=== PATIENT | male | born 1985 | race Caucasian/White ===

== ENCOUNTER 2020-06-26 01:22 | Emergency (ER) | payer SELFPAY ==
[2020-06-26] MEDS ORDERED: Lidocaine 1% 20 ML MDV INFILT ONE (01:23)
--- NOTE | 2020-06-26 02:17 | EDM.PDOC ---
ED HPI GENERAL MEDICAL PROBLEM - General Stated Complaint: FINGER LACERATION Time Seen by Provider: 06/26/20 01:50 Source of Information: Reports: Patient History Limitations: Reports: No Limitations - History of Present Illness INITIAL COMMENTS - FREE TEXT/NARRATIVE: pt has lac to right 5th finger, after accidental injury, no other medical concerns, last tetanus was 4 years ago. ED ROS GENERAL - Review of Systems Review Of Systems: See Below Constitutional: Reports: No Symptoms HEENT: Reports: No Symptoms Respiratory: Reports: No Symptoms Cardiovascular: Reports: No Symptoms ED EXAM, GENERAL - Physical Exam Exam: See Below Exam Limited By: No Limitations General Appearance: No Apparent Distress Respiratory/Chest: No Respiratory Distress, Lungs Clear Cardiovascular: Normal Peripheral Pulses, Regular Rate, Rhythm Extremities: Other (1.5 clean lac at lateral side of rigth fifth finger. ) Neurological: Alert, Oriented, CN II-XII Intact ED GENERAL MEDICAL PROCEDURES - Laceration/Wound Repair Right Lateral Digit - 5th (Baby) Appearance: Superficial Anesthetic Type: Local Local Anesthesia - Lidocaine (Xylocaine): 1% Plain Local Anesthetic Volume: 2cc Exploration/Debridement/Repair: Wound Explored, No Foreign Material Found Closed with: Sutures Suture Size: 3-0 Suture Type: Nylon Suture Size: 3-0 # of Sutures: 3 Tetanus Status Addressed: Yes Complications: No Course - Vital Signs Text/Narrative:: usual wound care was explained, pt to follow with PCP in 1 week for suture removal. Departure - Departure Time of Disposition: 02:16 Disposition: Home, Self-Care 01 Clinical Impression: Finger laceration - Discharge Information Referrals: PCP,None [Primary Care Provider] -
== END 2020-06-26 02:30 | disposition home or self-care (01) ==
LOC: FB.ED 01:22
DX: S61.216A Laceration without foreign body of right little finger without damage to nail, initial encounter (principal); W25.XXXA Contact with sharp glass, initial encounter
CPT/HCPCS: 12001; 99282; J2001

== ENCOUNTER 2021-02-10 00:22 | Emergency (ER) | payer SELFPAY ==
--- NOTE | 2021-02-10 00:51 | EDM.PDOC ---
ED HPI GENERAL MEDICAL PROBLEM - General Chief Complaint: Laceration Stated Complaint: LT ARM LACERATION Time Seen by Provider: 02/10/21 00:51 - History of Present Illness INITIAL COMMENTS - FREE TEXT/NARRATIVE: Left arm laceration Left Upper Arm Pain Score (Numeric/FACES): 4 - Related Data Allergies Allergy/AdvReac Type Severity Reaction Status Date / Time codeine Allergy Itching Verified 02/10/21 00:45 Home Meds: Home Meds Amoxicillin/Clavulanate K [Augmentin 875-125 MG] 1 tab PO BID #14 tablet 02/10/21 [Rx] Meloxicam 15 mg PO DAILY #7 tablet 02/10/21 [Rx] Sulfamethoxazole/Trimethoprim [Sulfamethoxazole-Tmp Ds Tablet] 1 each PO BID #14 tablet 02/10/21 [Rx] Past Medical History Dermatologic History: Reports: Other (See Below) Other Dermatologic History: Laceration right hand. - Past Surgical History GI Surgical History: Reports: Hernia Repair/Other, Other (See Below) Other GI Surgeries/Procedures: States right hernia repair with mesh. Musculoskeletal Surgical History: Reports: Other (See Below) Other Musculoskeletal Surgeries/Procedures:: States left shoulder surgery, with pins. Social & Family History - Tobacco Use Tobacco Use Status *Q: Current Every Day Tobacco User Years of Tobacco use: 20 Packs/Tins Daily: 0.5 - Caffeine Use Caffeine Use: Reports: Coffee, Energy Drinks, Soda, Tea - Recreational Drug Use Recreational Drug Use: No ED ROS GENERAL - Review of Systems Review Of Systems: Comprehensive ROS is negative, except as noted in HPI. ED EXAM, SKIN/RASH Exam: See Below Text/Narrative:: 7 CM lac to the kleft arm ED SKIN PROCEDURES - Laceration/Wound Repair Left Proximal Arm Appearance: Subcutaneous, Mildly Contaminated Distal NVT: Neuro & Vascular Intact Anesthetic Type: Local Local Anesthesia - Lidocaine (Xylocaine): 2% with EPI Skin Prep: Chlorhexidine (Hibiciens) Exploration/Debridement/Repair: In a Bloodless Field Closed with: Sutures Lac/Wound length In cm: 7 Suture Size: 3-0 Suture Type: Silk Course - Vital Signs Last Recorded V/S: Last Vital Signs Temp 97.3 F 02/10/21 00:25 Pulse 84 02/10/21 00:25 Resp 18 02/10/21 00:25 BP 127/81 02/10/21 00:25 Pulse Ox 95 02/10/21 00:25 Departure - Departure Time of Disposition: 00:51 Disposition: Home, Self-Care 01 Clinical Impression: Finger laceration - Discharge Information Instructions: Laceration Care, Adult Referrals: PCP,None [Primary Care Provider] - Forms: ED Department Discharge Additional Instructions: See primary care physician in one week to remove sutures. Keep area clean, dry, and intact. Follow-up as needed. Sepsis Event Note (ED) - Evaluation Sepsis Screening Result: No Definite Risk - Problem List & Annotations (1) Laceration SNOMED Code(s): 896913268 Code(s): SVP4673 - Status: Acute - Problem List Review Problem List Initiated/Reviewed/Updated: Yes - Assessment/Plan Plan: Tdap addressed. Return in 7 days for ROS
--- NOTE | 2021-02-24 06:48 | ER ---
DATE SEEN: 02/10/2021 ADDENDUM: CLINICAL IMPRESSION: Final Impression: Left arm laceration. /[id number] [place]
== END 2021-02-10 01:00 | disposition home or self-care (01) ==
LOC: FB.ED 00:22
DX: S41.112A Laceration without foreign body of left upper arm, initial encounter (principal); S61.219A Laceration without foreign body of unspecified finger without damage to nail, initial encounter; Z72.0 Tobacco use; Z88.5 Allergy status to narcotic agent; W26.8XXA Contact with other sharp object(s), not elsewhere classified, initial encounter
CPT/HCPCS: 12002; 99281; 99282-25

== ENCOUNTER 2021-02-10 21:44 | Emergency (ER) | payer SELFPAY ==
[2021-02-10] MEDS ORDERED: Ketorolac 30 MG/ML SDV IVPUSH ONE (22:18)
[2021-02-10] MEDS ORDERED: methylPREDNISolone Sodium Succinate 125 MG/2 ML SDV IVPUSH ONE (22:18)
[2021-02-10] MEDS ORDERED: cefTRIAXone 2 GM Vial IVPUSH ONE (22:18)
[2021-02-10] MEDS ORDERED: VANCOmycin 1 GM/200 ML 1 GM in Premix Bag 1 BAG IV ONE (22:18)
--- NOTE | 2021-02-10 22:39 | EDM.PDOC ---
ED HPI GENERAL MEDICAL PROBLEM - General Chief Complaint: General Stated Complaint: PAIN FROM LACERATION Time Seen by Provider: 02/10/21 22:00 Source of Information: Reports: Patient, Family History Limitations: Reports: No Limitations - History of Present Illness INITIAL COMMENTS - FREE TEXT/NARRATIVE: c/o pain LUE pt cut his L forearm on glass at ~9p last night, he come to the ED over 3h later and it was repaired BRITTANY Ferguson cleaned the skin which was caked with blood and grime, she reports the wound itself was free of foreign bodies last Td reported in past 5y pt has multiple old scars on the dorsum of his L forearm that are c/w self- inflicted trauma including circular scars c/w skin popping he has a horizontal 7 cm lac with sutures up the upper part of LUE with redness and some edema extending inferiorly 3 cm in a rectangular fashion the edema and elevation of the red, warm area gives the appearance of an allergic reaction from unclear etiology the rapid spread in 24h suggests possible MRSA or other more aggressive cellulitis there is no induration below the skin surface and no evidence of retained f.b. pt was very angry and aggressive when I entered the room, yelling at me when I was asking questions about his sxs, I said I would be back and stepped out of the room, he yelled even more as his control room helper tried to calm him down, I requested STERLING Alba to speak to pt which she did with BRITTANY Ratliff, Parth obtained his cooperation and he apologized to me and shook my hand he did communicate that he has shoulder surgery on the L side with likely he just moved to the area, works at [employer] - Related Data Allergies Allergy/AdvReac Type Severity Reaction Status Date / Time codeine Allergy Itching Verified 02/10/21 00:45 Home Meds: Home Meds Amoxicillin/Clavulanate K [Augmentin 875-125 MG] 1 tab PO BID #14 tablet 02/10/21 [Rx] Meloxicam 15 mg PO DAILY #7 tablet 02/10/21 [Rx] Sulfamethoxazole/Trimethoprim [Sulfamethoxazole-Tmp Ds Tablet] 1 each PO BID #14 tablet 02/10/21 [Rx] Past Medical History Dermatologic History: Reports: Other (See Below) Other Dermatologic History: Laceration right hand. - Past Surgical History GI Surgical History: Reports: Hernia Repair/Other, Other (See Below) Other GI Surgeries/Procedures: States right hernia repair with mesh. Musculoskeletal Surgical History: Reports: Other (See Below) Other Musculoskeletal Surgeries/Procedures:: States left shoulder surgery, with pins. Social & Family History - Tobacco Use Tobacco Use Status *Q: Current Every Day Tobacco User Years of Tobacco use: 10 Packs/Tins Daily: 0.7 - Caffeine Use Caffeine Use: Reports: Coffee - Recreational Drug Use Recreational Drug Use: No ED ROS GENERAL - Review of Systems Review Of Systems: See Below Constitutional: Reports: No Symptoms HEENT: Reports: No Symptoms Respiratory: Reports: No Symptoms Cardiovascular: Reports: No Symptoms Endocrine: Reports: No Symptoms GI/Abdominal: Reports: No Symptoms : Reports: No Symptoms Musculoskeletal: Reports: No Symptoms Skin: Reports: Rash Neurological: Reports: No Symptoms Psychiatric: Reports: No Symptoms Hematologic/Lymphatic: Reports: No Symptoms Immunologic: Reports: No Symptoms ED EXAM, GENERAL - Physical Exam Exam: See Below Exam Limited By: No Limitations General Appearance: Alert, WD/WN Ear Exam: Right Ear: TM Red Neck: Normal Inspection Respiratory/Chest: No Respiratory Distress Cardiovascular: Regular Rate, Rhythm GI/Abdominal: Soft Back Exam: Normal Inspection, Full Range of Motion Extremities: Normal Inspection Neurological: Alert, Oriented, CN II-XII Intact, No Motor/Sensory Deficits Skin Exam: Other (see description in HPI, red rash 7 x 4 cm faded very quickly with IV antbx, edges marked in ink, pain quickly controlled) Lymphatic: No Adenopathy Course - Vital Signs Last Recorded V/S: Last Vital Signs Temp 36.3 C 02/10/21 21:57 Pulse 88 02/10/21 21:57 Resp 16 02/10/21 21:57 BP 147/98 H 02/10/21 21:57 Pulse Ox 96 02/10/21 21:57 - Orders/Labs/Meds Orders: Active Orders 24 hr Category Date Time Status CBC WITH AUTO DIFF [HEME] Stat Lab 02/10/21 22:25 Ordered CRP [C-REACTIVE PROTEIN] [CHEM] Stat Lab 02/10/21 22:25 Ordered Meds: Medications Discontinued Medications Generic Name Dose Route Start Last Admin Trade Name Freq PRN Reason Stop Dose Admin Ceftriaxone Sodium 1 gm 02/10/21 22:18 Ceftriaxone 2 Gm Vial IVPUSH 02/10/21 22:19 ONETIME ONE Vancomycin HCl 1 gm/ Premix 200 mls @ 200 mls/hr 02/10/21 22:18 IV 02/10/21 22:19 STAT ONE Ketorolac Tromethamine 30 mg 02/10/21 22:18 Ketorolac 30 Mg/Ml Sdv IVPUSH 02/10/21 22:19 ONETIME ONE Methylprednisolone Sodium Succinate 125 mg 02/10/21 22:18 Methylprednisolone Sodium Succinate 125 Mg/2 Ml Sdv IVPUSH 02/10/21 22:19 ONETIME ONE - Re-Assessments/Exams Free Text/Narrative Re-Assessment/Exam: 02/10/21 23:33 unclear if it may be MRSA which is a possibility, a fairly aggressive bacteria, no clinical evidence of involvement of deeper tissues pain improved quickly with dec'd swelling and Toradol IV no moist area to culture Departure - Departure Time of Disposition: 23:45 Disposition: Home, Self-Care 01 Condition: Good Clinical Impression: Cellulitis - Discharge Information *PRESCRIPTION DRUG MONITORING PROGRAM REVIEWED*: Not Applicable *COPY OF PRESCRIPTION DRUG MONITORING REPORT IN PATIENT [facility]: Not Applicable Prescriptions: Amoxicillin/Clavulanate K [Augmentin 875-125 MG] 1 tab PO BID #14 tablet Meloxicam 15 mg PO DAILY #7 tablet Sulfamethoxazole/Trimethoprim [Sulfamethoxazole-Tmp Ds Tablet] 1 each PO BID #14 tablet Instructions: Cellulitis, Adult Referrals: PCP,None [Primary Care Provider] - Additional Instructions: For infection, take amoxicillin-clavulanate 875/125 mg 1 tab 2 times a day for 7 days. For infection, take sulfamethoxazole-trimethoprim DS 1 tab 2 times a day for 7 days. For pain and inflammation, take meloxicam 15 mg 1 tab daily for 7 days. It should get better very quickly. However, it is getting worse your need to have in rechecked the same day in the doctor's office, walk-in clinic or Emergency Department. See your doctor in 7 days to remove sutures. Sepsis Event Note (ED) - Evaluation Sepsis Screening Result: No Definite Risk - Focused Exam Vital Signs: Vital Signs Temp Pulse Resp BP Pulse Ox 02/10/21 21:57 36.3 C 88 16 147/98 H 96 - My Orders Last 24 Hours: My Active Orders 02/10/21 22:25 CBC WITH AUTO DIFF [HEME] Stat CRP [C-REACTIVE PROTEIN] [CHEM] Stat - Assessment/Plan Last 24 Hours: My Active Orders 02/10/21 22:25 CBC WITH AUTO DIFF [HEME] Stat CRP [C-REACTIVE PROTEIN] [CHEM] Stat
== END 2021-02-10 23:55 | disposition home or self-care (01) ==
LOC: FB.ED 21:44
DX: L03.114 Cellulitis of left upper limb (principal); Z88.5 Allergy status to narcotic agent; Z72.0 Tobacco use
CPT/HCPCS: 36415; 85025; 86140; 96365; 96375; 99283; 99283-25; J0696; J1885; J2930; J3370

== ENCOUNTER 2022-01-20 08:05 | Day surgery (SDC) | payer MEDICAID ==
[~2022-01-20 08:05] MED LIST: Lactated Ringers 1,000 ML IV SCH; Sodium Chloride 0.9% 10 ML Syringe FLUSH PRN
[2022-01-20] MEDS ORDERED: Propofol 200 MG/20 ML SDV IV ONE (08:06)
== END 2022-01-20 11:58 | disposition home or self-care (01) ==
LOC: FB.SDS 08:05
PROVIDERS: ATTEND Surgery
DX: K58.9 Irritable bowel syndrome, unspecified (principal); K64.1 Second degree hemorrhoids; K64.4 Residual hemorrhoidal skin tags; F41.9 Anxiety disorder, unspecified; F32.A Depression, unspecified; F17.210 Nicotine dependence, cigarettes, uncomplicated; Z88.5 Allergy status to narcotic agent; Z88.8 Allergy status to other drugs, medicaments and biological substances; Z79.899 Other long term (current) drug therapy
CPT/HCPCS: 00812-QZ; J2704; J7120

== ENCOUNTER 2024-04-29 19:41 | Observation (INO) | payer OTHER, BC ==
[2024-04-29] MEDS: Sodium Chloride 0.9% 1,000 ML IV SCH (19:45)
[2024-04-29] MEDS ORDERED: Sodium Chloride 0.9% 10 ML Syringe FLUSH PRN (19:45)
[2024-04-29] MEDS: Ondansetron 4 MG/2 ML SDV IVPUSH ONE (19:47)
[2024-04-29] MEDS: fentaNYL 100 MCG/2 ML SDV IVPUSH PRN (19:48)
[2024-04-29 20:00] LABS: BASOPHILS ABSOLUTE AUTO 0.1 x10-3/uL (0.0-0.3); BASOPHILS PERCENT AUTO 0.9 % (0.3-3.8); EOSINOPHILS ABSOLUTE AUTO 0.1 x10-3/uL (0.0-0.6); EOSINOPHILS PERCENT AUTO 1.5 % (0.1-6.8); HEMATOCRIT 43.4 % (38.3-50.1); HEMOGLOBIN 15.1 g/dL (12.9-17.7); LYMPHOCYTES ABSOLUTE AUTO 4.8 x10-3/uL (0.5-4.5); LYMPHOCYTES PERCENT AUTO 48.2 % (15.8-45.3); MEAN CORPUSCULAR HEMOGLOBIN 32.9 pg (27.0-33.3); MEAN CORPUSCULAR HGB CONC 34.7 g/dL (28.7-35.3); MEAN CORPUSCULAR VOLUME 94.9 fL (80.8-98.7); MONOCYTES ABSOLUTE AUTO 0.6 x10-3/uL (0.0-1.2); MONOCYTES PERCENT AUTO 5.5 % (5.5-15.2); NEUTROPHILS ABSOLUTE AUTO 4.4 x10-3/uL (1.7-6.9); NEUTROPHILS PERCENT AUTO 43.9 % (40.3-71.8); PLATELET COUNT,PLT 276 x10(3)uL (117-477); RED BLOOD CELL COUNT 4.57 x10(6)uL (3.90-5.90); RED CELL DISTRIBUTION WIDTH 12.2 % (12.4-15.0)
[2024-04-29 20:03] LABS: BLOOD UREA NITROGEN,BUN 25 mg/dL (7-18); CALCIUM 8.9 mg/dL (8.6-10.2); CARBON DIOXIDE,CO2 25 mmol/L (21-32); CHLORIDE,CL 104 mmol/L (100-110); ESTIMATED GFR 98 mL/min (>60); GLUCOSE RANDOM 107 mg/dL (80-116); POTASSIUM,K 3.5 mmol/L (3.5-5.3); SODIUM,NA 139 mmol/L (135-145)
[2024-04-29 20:19] LABS: A/G RATIO 1.2; ALBUMIN 4.1 g/dL (3.5-5.2); ALKALINE PHOSPHATASE 70 IU/L (56-112); BILIRUBIN TOTAL 0.6 mg/dL (0.1-1.3); PROTEIN TOTAL,TP 7.6 g/dL (6.0-8.0)
[2024-04-29 20:20] LABS: ALANINE AMINOTRANSFERASE,ALT 300 U/L (12-36); ASPARTATE AMNIOTRANSFERASE,AST 284 IU/L (5-25)
[2024-04-29] MEDS: Iopamidol 755 Mg/ML 100 ML Bottle IV SCH (20:56)
[2024-04-29] MEDS: HYDROmorphone 2 MG/ML SDV IVPUSH ONE (21:09)
[2024-04-29] MEDS ORDERED: Ondansetron 4 MG/2 ML SDV IV PRN (21:44)
[2024-04-29] MEDS ORDERED: Naloxone 0.4 MG/ML SDV IVPUSH PRN (21:44)
[2024-04-29] MEDS: HYDROmorphone 2 MG/ML SDV IVPUSH PRN (23:31)
[2024-04-30] MEDS: Sodium Chloride 0.9% 1,000 ML IV SCH (00:32)
[2024-04-30] MEDS: Nicotine 21 MG/24 Hr Patch TRDERM SCH (00:35)
[2024-04-30] MEDS: Gabapentin 300 MG Cap PO ONE (00:56)
[2024-04-30] MEDS: Losartan 25 MG Tab PO ONE (00:56)
[2024-04-30] MEDS: Nortriptyline 25 MG Cap PO ONE (00:56)
[2024-04-30 07:14] LABS: BASOPHILS PERCENT AUTO 0.4 % (0.3-3.8); EOSINOPHILS ABSOLUTE AUTO 0.2 x10-3/uL (0.0-0.6); EOSINOPHILS PERCENT AUTO 2.7 % (0.1-6.8); HEMATOCRIT 37.5 % (38.3-50.1); HEMOGLOBIN 12.7 g/dL (12.9-17.7); LYMPHOCYTES ABSOLUTE AUTO 1.6 x10-3/uL (0.5-4.5); LYMPHOCYTES PERCENT AUTO 21.2 % (15.8-45.3); MEAN CORPUSCULAR HEMOGLOBIN 32.4 pg (27.0-33.3); MEAN CORPUSCULAR VOLUME 95.4 fL (80.8-98.7); MEAN PLATELET VOLUME 8.5 fL (6.7-11.0); MONOCYTES ABSOLUTE AUTO 0.9 x10-3/uL (0.0-1.2); MONOCYTES PERCENT AUTO 11.7 % (5.5-15.2); NEUTROPHILS ABSOLUTE AUTO 4.7 x10-3/uL (1.7-6.9); PLATELET COUNT,PLT 192 x10(3)uL (117-477); RED BLOOD CELL COUNT 3.93 x10(6)uL (3.90-5.90); RED CELL DISTRIBUTION WIDTH 12.4 % (12.4-15.0); WHITE BLOOD CELL COUNT,WBC 7.4 x10-3/uL (3.2-10.1)
[2024-04-30 07:34] LABS: ALBUMIN 3.2 g/dL (3.5-5.2); ALKALINE PHOSPHATASE 58 IU/L (56-112); BILIRUBIN TOTAL 0.9 mg/dL (0.1-1.3); BLOOD UREA NITROGEN,BUN 18 mg/dL (7-18); BUN/CREATININE RATIO 25.7 (9-20); CALCIUM 7.9 mg/dL (8.6-10.2); CARBON DIOXIDE,CO2 27 mmol/L (21-32); CHLORIDE,CL 106 mmol/L (100-110); CREATININE 0.7 mg/dL (0.70-1.30); EST CRCL DRUG DOSING (CG) 137.07 mL/min; ESTIMATED GFR 120 mL/min (>60); GLUCOSE RANDOM 102 mg/dL (80-116); POTASSIUM,K 3.5 mmol/L (3.5-5.3); PROTEIN TOTAL,TP 6.4 g/dL (6.0-8.0); SODIUM,NA 139 mmol/L (135-145)
[2024-04-30 07:46] LABS: ALANINE AMINOTRANSFERASE,ALT 249 U/L (12-36); ASPARTATE AMNIOTRANSFERASE,AST 194 IU/L (5-25)
[2024-04-30] MEDS: Ondansetron 4 MG/2 ML SDV ONE (07:59)
[2024-04-30] MEDS: fentaNYL 100 MCG/2 ML SDV ONE (07:59)
[2024-04-30] MEDS: Gabapentin 300 MG Cap PO SCH (08:26)
[2024-04-30] MEDS: Losartan 25 MG Tab PO SCH (08:27)
[2024-04-30 10:51] LABS: ACETAMINOPHEN < 2 ug/mL (<2); CREATINE KINASE,CK 3416 IU/L (60-160)
[2024-04-30] MEDS ORDERED: Nortriptyline 25 MG Cap PO SCH (21:00)
[2024-04-30] MEDS ORDERED: Nicotine 21 MG/24 Hr Patch TRDERM SCH (21:00)
[2024-05-01 19:45] LABS: HEPATITIS A ANTIBODY, IGM Negative (Negative); HEPATITIS B CORE ANTIBODY, IGM Negative (Negative); HEPATITIS B SURFACE ANTIGEN Negative (Negative); HEPATITIS C AB CIA INTERP Negative (Negative); HEPATITIS C ANTIBODY CIA INDEX 0.06 IV
== END 2024-04-30 10:56 ==
LOC: EDBD 19:41 → FB.ED 19:41 → MERGE 22:09 → FB.MS 22:09
PROVIDERS: ADMIT Family Medicine; ATTEND Internal Medicine
DX: S22.42XA Multiple fractures of ribs, left side, initial encounter for closed fracture (principal); S27.0XXA Traumatic pneumothorax, initial encounter; S27.329A Contusion of lung, unspecified, initial encounter; M25.562 Pain in left knee; M25.512 Pain in left shoulder; F41.9 Anxiety disorder, unspecified; I10 Essential (primary) hypertension; F43.10 Post-traumatic stress disorder, unspecified; F41.1 Generalized anxiety disorder; R79.89 Other specified abnormal findings of blood chemistry; F17.210 Nicotine dependence, cigarettes, uncomplicated; Z79.899 Other long term (current) drug therapy; Z88.5 Allergy status to narcotic agent; Z88.8 Allergy status to other drugs, medicaments and biological substances; V29.99XA Rider (driver) (passenger) of other motorcycle injured in unspecified traffic accident, initial encounter
CPT/HCPCS: 36415; 51701; 51702; 70450; 71046; 71260; 72125; 72128; 72131; 73030-LT; 73562-LT; 74177; 80053; 80074; 80143; 80307; 82550; 85025; 94150; 96361; 96374; 96375; 96376; 99222; 99238; 99285; 99285-25; A9270-GY; C1758; G0378; J1170; J2405; J3010; J7030; Q9967

== ENCOUNTER 2024-05-11 21:13 | Emergency (ER) | payer BC ==
[2024-05-11 22:17] LABS: BASOPHILS ABSOLUTE AUTO 0.1 x10-3/uL (0.0-0.3); EOSINOPHILS ABSOLUTE AUTO 0.3 x10-3/uL (0.0-0.6); EOSINOPHILS PERCENT AUTO 3.3 % (0.1-6.8); HEMATOCRIT 33.6 % (38.3-50.1); HEMOGLOBIN 11.9 g/dL (12.9-17.7); LYMPHOCYTES ABSOLUTE AUTO 1.6 x10-3/uL (0.5-4.5); LYMPHOCYTES PERCENT AUTO 16.7 % (15.8-45.3); MEAN CORPUSCULAR HGB CONC 35.4 g/dL (28.7-35.3); MEAN CORPUSCULAR VOLUME 93.2 fL (80.8-98.7); MEAN PLATELET VOLUME 8.1 fL (6.7-11.0); MONOCYTES ABSOLUTE AUTO 1.1 x10-3/uL (0.0-1.2); MONOCYTES PERCENT AUTO 11.6 % (5.5-15.2); NEUTROPHILS ABSOLUTE AUTO 6.3 x10-3/uL (1.7-6.9); NEUTROPHILS PERCENT AUTO 67.4 % (40.3-71.8); PLATELET COUNT,PLT 417 x10(3)uL (117-477); RED CELL DISTRIBUTION WIDTH 12.2 % (12.4-15.0); WHITE BLOOD CELL COUNT,WBC 9.4 x10-3/uL (3.2-10.1)
[2024-05-11 22:23] LABS: BLOOD UREA NITROGEN,BUN 27 mg/dL (7-18); BUN/CREATININE RATIO 33.8 (9-20); CALCIUM 8.7 mg/dL (8.6-10.2); CARBON DIOXIDE,CO2 25 mmol/L (21-32); CHLORIDE,CL 100 mmol/L (100-110); CREATININE 0.8 mg/dL (0.70-1.30); EST CRCL DRUG DOSING (CG) 119.94 mL/min; ESTIMATED GFR 115 mL/min (>60); GLUCOSE RANDOM 122 mg/dL (80-116); POTASSIUM,K 3.3 mmol/L (3.5-5.3); SODIUM,NA 135 mmol/L (135-145)
[2024-05-11] MEDS: cefTRIAXone 2 GM Vial IVPUSH ONE (22:25)
[2024-05-11 22:29] LABS: A/G RATIO 0.8; ALANINE AMINOTRANSFERASE,ALT 43 U/L (12-36); ALBUMIN 3.2 g/dL (3.5-5.2); ALKALINE PHOSPHATASE 107 IU/L (56-112); ASPARTATE AMNIOTRANSFERASE,AST 12 IU/L (5-25); BILIRUBIN TOTAL 0.8 mg/dL (0.1-1.3); PROTEIN TOTAL,TP 7.3 g/dL (6.0-8.0)
== END 2024-05-11 23:45 | disposition home or self-care (01) ==
LOC: FB.ED 21:13
DX: K60.3 Anal fistula (principal); K62.89 Other specified diseases of anus and rectum; I10 Essential (primary) hypertension; F17.200 Nicotine dependence, unspecified, uncomplicated; Z88.5 Allergy status to narcotic agent; Z88.8 Allergy status to other drugs, medicaments and biological substances; Z79.51 Long term (current) use of inhaled steroids; Z79.899 Other long term (current) drug therapy
CPT/HCPCS: 36415; 80053; 85025; 86140; 87040; 96374; 99283; J0696